=== PATIENT | male | born 1990 | race Caucasian/White ===

== ENCOUNTER 2016-12-11 11:14 | Inpatient (IN) | payer MEDICARE, MEDICAID ==
[~2016-12-11] VITALS: Ht 182.9 cm; Wt 70.0 kg
[2016-12-11] MEDS ORDERED: HALOPERIDOL LACTATE 5 MG/ML VIAL IM ONE (13:15)
[2016-12-11] MEDS ORDERED: DiphenhydrAMINE HCL 50 MG/ML VIAL IM ONE (13:15)
[2016-12-11] MEDS ORDERED: LORazepam 2 MG/ML VIAL IM ONE (13:15)
[2016-12-11 13:29] LABS: BASOPHILS % (AUTO) 0.2 % (0.0-2.0); EOSINOPHILS % (AUTO) 0.8 % (1.0-6.0); HEMATOCRIT 44.5 % (41-53); HEMOGLOBIN 14.6 g/dL (13.5-17.5); LYMPHOCYTES # (AUTO) 2.2 K/uL (1.0-4.8); LYMPHOCYTES % (AUTO) 29.5 % (22.0-44.0); MEAN CORPUSCULAR HEMOGLOBIN 31.2 pg (26.0-34.0); MEAN CORPUSCULAR HGB CONC 32.8 G/dL (31.0-37.0); MEAN CORPUSCULAR VOLUME 95 fL (80-100); MONOCYTES # (AUTO) 0.5 K/uL (0.1-1.0); MONOCYTES % (AUTO) 6.5 % (2.0-9.0); NEUTROPHILS # (AUTO) 4.8 K/uL (1.8-7.7); PLATELET COUNT (AUTO) 197 K/uL (150-450); RED BLOOD CELL COUNT(AUTO) 4.67 MIL/uL (4.50-5.90); RED CELL DISTRIBUTION WIDTH 12.9 % (11.5-14.5); WHITE BLOOD COUNT (AUTO) 7.6 K/uL (4.5-11.0)
[2016-12-11 13:32] LABS: ANION GAP 6 mmol/L (8-16); CARBON DIOXIDE 31 mmol/L (22-29); CHLORIDE 103 mmol/L (98-107); CREATININE 0.95 mg/dL (0.60-1.30); GLOMERULAR FILTR. RATE CALC > 60 mL/min (>60); POTASSIUM 3.6 mmol/L (3.5-5.1); SODIUM SERUM 140 mmol/L (136-145); UREA NITROGEN, BLOOD 14 mg/dL (7-18)
[2016-12-11 13:38] LABS: ALANINE AMINOTRANSFERASE 29 U/L (12-78); ALBUMIN 3.9 g/dL (3.4-5.0); ASPARTATE AMINOTRANSFERASE 30 U/L (15-37); BILIRUBIN,TOTAL 0.6 mg/dL (0.1-1.0)
[2016-12-11] MEDS ORDERED: ZOLPIDEM TARTRATE 10 MG TABLET PO PRN (14:15)
[2016-12-11] MEDS ORDERED: HALOPERIDOL 5 MG TABLET PO PRN (14:15)
[2016-12-11 16:35] VITALS: BP 114/80
[2016-12-12] MEDS ORDERED: INFLUENZA VIRUS VACCINE QVS 2016-17 (3YR+)/PF 60 MCG/0.5 ML SYRINGE IM ONE (01:00)
[2016-12-12] MEDS: BENZTROPINE MESYLATE 0.5 MG TABLET PO SCH (10:27)
[2016-12-12] MEDS: HALOPERIDOL 5 MG TABLET PO SCH (10:27)
[2016-12-12 16:28] VITALS: BP 115/70
[2016-12-12 16:29] VITALS: BP 115/70
[2016-12-13 08:00] VITALS: BP 105/58
[2016-12-13] MEDS: BENZTROPINE MESYLATE 0.5 MG TABLET PO SCH (08:43)
[2016-12-13] MEDS: HALOPERIDOL 5 MG TABLET PO SCH (08:44)
[2016-12-13] MEDS: LORazepam 2 MG TABLET PO PRN (10:47)
[2016-12-13 16:46] VITALS: BP 132/79
[2016-12-14 08:10] VITALS: BP 99/61
[2016-12-14] MEDS: HALOPERIDOL 5 MG TABLET PO SCH (08:34)
[2016-12-14] MEDS: BENZTROPINE MESYLATE 0.5 MG TABLET PO SCH (08:34)
[2016-12-14] MEDS: LORazepam 2 MG TABLET PO PRN (08:35)
[2016-12-14] MEDS ORDERED: BENZ0.5T6 PO (11:09)
[2016-12-14] MEDS ORDERED: HALO5 PO (11:09)
== END 2016-12-14 13:00 | disposition home or self-care (01) | DRG 885 ==
LOC: EMS 11:16 → EEVIPCON 11:16 → 3EC 14:49
PROVIDERS: ADMIT Psychiatry & Neurology Psychiatry; ATTEND Psychiatry & Neurology Psychiatry
DX: F29 Unspecified psychosis not due to a substance or known physiological condition (principal); F15.20 Other stimulant dependence, uncomplicated; R45.851 Suicidal ideations; F25.9 Schizoaffective disorder, unspecified; F10.10 Alcohol abuse, uncomplicated; Z71.41 Alcohol abuse counseling and surveillance of alcoholic; Z71.51 Drug abuse counseling and surveillance of drug abuser; Z28.21 Immunization not carried out because of patient refusal; Z88.1 Allergy status to other antibiotic agents
CPT/HCPCS: 96372; 99285; G0480; J1200; J1630; J2060

== ENCOUNTER 2019-10-19 17:26 | Emergency (ER) | payer MEDICARE, MEDICAID ==
[~2019-10-19] VITALS: Ht 177.8 cm; Wt 79.5 kg
[~2019-10-19 17:26] MED LIST: BENZ0.5T44 PO; HALO5TAB2 PO
[2019-10-19] MEDS ORDERED: ACETAMINOPHEN 500 MG TABLET PO ONE (19:00)
[2019-10-19 19:04] VITALS: BP 128/80
== END 2019-10-19 19:10 | disposition home or self-care (01) ==
LOC: EMS 17:31
DX: L84 Corns and callosities (principal); R03.0 Elevated blood-pressure reading, without diagnosis of hypertension; F17.210 Nicotine dependence, cigarettes, uncomplicated; F12.90 Cannabis use, unspecified, uncomplicated; F15.90 Other stimulant use, unspecified, uncomplicated; Z88.8 Allergy status to other drugs, medicaments and biological substances